=== PATIENT | male | born 1970 | race African-American/Black ===

== ENCOUNTER 2016-04-10 11:31 | Emergency (ER) | payer OTHER ==
--- NOTE | 2016-04-10 11:51 | EDPRACDOC ---
- General Information Chief Complaint: Back Pain Stated Complaint: BACK PAIN Time Seen by Provider: 04/10/16 11:47 Information Source: Patient Mode Of Arrival: Car Home Medications: Home Medications Cyclobenzaprine HCl [Flexeril] 10 mg PO TID PRN #20 tablet 04/10/16 Ketoprofen 50 mg PO BID PRN #20 capsule 04/10/16 Allergies/Adverse Reactions: Allergies Allergy/AdvReac Type Severity Reaction Status Date / Time No Known Allergies Allergy Verified 04/10/16 11:43 - History of Present Illness Onset: sunday HPI: PT STATES THAT HE FELL AT WORK ON SUNDAY, STATES HE "FELL ON MY BUTT", COMPLAINS OF PAIN IN RIGHT SIDE OF HIS BACK SINCE, STATES PAIN IS ACHING, WORSE WITH TWISTING AND BENDING. PT STATES USING ALEVE WITH SOME RELIEF, DENIES BOWEL /BLADDER DYSFUNCTION Pain Location: Reports: Right, Lumbar Pain Radiates To: Reports: None Pain Caused By: Reports: Blunt Trauma Circumstances: Reports: Work-related, Fall Relevant History: Reports: None Pain Severity: Reports: Severe Pain Quality: Reports: Aching Worsened By: Reports: Movement, Twisting Associated Signs and Symptoms: Reports: None ED Past Medical History - History Reviewed Yes Nurses notes reviewed and agree except as marked No Past Medical History: Yes Patient has no past medical history - Social Medical History Smoking Status: Never smoker EDM Review of Systems - Review of Systems Constitutional: negative: Chills, Fever Genitourinary: negative: Dysuria, Frequency Neurological: negative: Dizziness, Headache, Numbness, Weakness Musculoskeletal: Back Integumentary: No Symptoms Reported - Physical Exam Constitutional: Alert (Awake), No apparent distress Oriented to: Time, Person, Place Last recorded Vital Signs: Last Vital Signs Temp 97.7 F 04/10/16 11:43 Pulse 80 04/10/16 11:43 Resp 20 04/10/16 11:43 BP 139/76 04/10/16 11:43 Pulse Ox 99 04/10/16 11:43 Oxygen Pulse Oxygen Saturation 99 O2 Device Room Air Oxygen Flow Rate Fraction of Inspired Oxygen ( FIO2) - HEENT Head: Normal ( normocephalic) Neck: Normal - Integumentary Skin: Normal, Warm, Dry Lymphatics: Normal (no adenopathy) - Neurologic Memory Impaired: Normal Motor Function: Normal (Normal tone, Pulses 2+ No cyanosis or edema, FROM) Cranial Nerve: Normal (CN II-X11 intact sensation, strength 5/5) Cerebellar: Normal Mood Description: Normal Perception: Normal ED Back Exam - Neurologic Motor Deficit: None - Musculoskeletal Cervical: Normal Thoracic: Normal Lumbar: Tender Midline: Normal Paraspinous: Tender Straight Leg Raise: Negative Pelvis: Normal - Differential Diagnosis DJD, HNP, Musculoskeletal pain, Strain - Diagnostic Imaging L-S SPINE Image interpreted by: Radiologist LUMBAR SPINE - COMPLETE 4+ VIEW COMPARISON: None FINDINGS: Five views of lumbar spine submitted. No acute fracture or subluxation. Alignment and vertebral body heights are preserved. Mild disc space flattening at L5-S1 level. IMPRESSION: No acute fracture or subluxation. Mild disc space flattening at L5-S1 level. Decision Time to Discharge: 12:37 - Departure Disposition: Home Condition: Stable Final Diagnosis: Acute low back pain Instructions: Acute Low Back Pain (ED) Education/Counseling Given To: Patient Education/Counseling Given Regarding: Diagnosis, Treatment, Prognosis, Follow Up Referrals: Elaina Neff MD [Staff Physician] - One Week Prescriptions: Cyclobenzaprine HCl [Flexeril] 10 mg PO TID PRN #20 tablet PRN Reason: Muscle Spasms Ketoprofen 50 mg PO BID PRN #20 capsule PRN Reason: Pain Additional Instructions: Back Pain: apply warm compresses to affected area 20 mins at a time 4 - 5 times daily as needed for pain
[2016-04-10 11:59] VITALS: BP 139/76; PULSE 80; TEMP 97.7; BMI 31.6
--- NOTE | 2016-04-10 12:31 | DIRPT ---
CLINICAL DATA: Pain after fall at work, initial encounter EXAM: LUMBAR SPINE - COMPLETE 4+ VIEW COMPARISON: None FINDINGS: Five views of lumbar spine submitted. No acute fracture or subluxation. Alignment and vertebral body heights are preserved. Mild disc space flattening at L5-S1 level. IMPRESSION: No acute fracture or subluxation. Mild disc space flattening at L5-S1 level. Electronically Signed By: Arthur Lara M.D. On: 04/10/2016 12:28
== END 2016-04-10 12:42 | disposition home or self-care (01) ==
LOC: EDMC 11:31
DX: M54.5 Low back pain (principal); W19.XXXA Unspecified fall, initial encounter; Y99.0 Civilian activity done for income or pay
CPT/HCPCS: 72110; 99282